=== PATIENT | male | born 1965 | race Caucasian/White ===

== ENCOUNTER → 2016-11-22 | Outpatient (CLI) | payer BC ==
[~2016-11-22] MED LIST: AMOX-355 PO; CETI-176 PO; HYDR1TAB PO; LISI20TA PO; OMEP20TA2 PO; PRD20T PO; SIMV40TA4 PO
--- NOTE | 2016-11-22 11:46 | Diagnostic Imaging Report ---
PROCEDURE: CT sinuses without contrast TECHNIQUE: Multiple contiguous axial images were obtained through the sinuses without the use of intravenous contrast. Coronal and sagittal reformations were then performed. INDICATION: Sinusitis. Polyps. FINDINGS: When compared to 11/04/2011, there is significant improvement in aeration of the maxillary sinuses. There is suggestion of prior sinonasal surgery involving resections of the medial wall of the maxillary sinus more prominent on the left side. Correlate with surgical history. There is remaining mucosal thickening seen in both maxillary sinuses and soft tissue densities obliterating the anterior, superior, and medial aspect of both maxillary sinuses inseparable from the adjacent ostiomeatal complex, upper nasal cavities and the ethmoidal air cells with evidence of erosions of the bony plates these structures and within the ethmoidal air cells. This does not have however an aggressive appearance and is probably a sequela of long-standing sinusitis and sinonasal polyposis. There is prominent mucosal thickening in the sphenoidal sinuses as well. The frontal sinuses are completely obliterated with soft tissue lesions, similar to 2012 exam. The right mastoid air cells and middle ear cavity appear clear. The left mastoid air cells demonstrate minimal inferior medial mucosal thickening, otherwise majority of this area appears clear. IMPRESSION: Significant sinonasal disease with some improvement compared to 11/04/2011 as described. This is probably related to sinonasal polyposis and chronic sinusitis. Dictated by: Dictated on workstation # [id number]
== END ==
LOC: RAD 10:41
PROVIDERS: ATTEND Otolaryngology Otolaryngology/Facial Plastic Surgery
DX: J33.9 Nasal polyp, unspecified (principal); J32.9 Chronic sinusitis, unspecified; R09.81 Nasal congestion
CPT/HCPCS: 70486

== ENCOUNTER 2017-01-13 09:04 | Outpatient (CLI) | payer BC ==
[~2017-01-13] VITALS: Ht 172.7 cm; Wt 92.5 kg
[2017-01-13 09:13] VITALS: BP 144/88
[2017-01-13] MEDS ORDERED: PANT40TA3 PO (09:17)
[2017-01-13] MEDS ORDERED: FENO145T20 PO (09:17)
[2017-01-13 09:41] LABS: BASOPHILS % (AUTO) 0 % (0-10); EOSINOPHILS % (AUTO) 0 % (0-10); LYMPHOCYTES # (AUTO) 0.6 X 10^3 (1.0-4.0); LYMPHOCYTES % (AUTO) 6 % (12-44); MEAN CORPUSCULAR HEMOGLOBIN 31 PG (25-34); MEAN CORPUSCULAR HGB CONC 34 G/DL (32-36); MEAN CORPUSCULAR VOLUME 91 FL (80-99); MEAN PLATELET VOLUME 9.6 FL (7.4-10.4); MONOCYTES # (AUTO) 0.1 X 10^3 (0.0-1.0); MONOCYTES % (AUTO) 1 % (0-12); NEUTROPHILS # (AUTO) 9.1 X 10^3 (1.8-7.8); NEUTROPHILS % (AUTO) 93 % (42-75); PLATELET COUNT 309 10^3/uL (130-400); RED BLOOD COUNT 4.98 10^6/uL (4.35-5.85); RED CELL DISTRIBUTION WIDTH 12.6 % (10.0-14.5); WHITE BLOOD COUNT 9.9 10^3/uL (4.3-11.0)
[2017-01-13 10:10] LABS: ANION GAP 9 MMOL/L (5-14); BAND NEUTROPHILS 0 %; BASOPHILS % (MANUAL) 0 %; BLOOD UREA NITROGEN 22 MG/DL (7-18); BUN/CREATININE RATIO 18 (0-20); CALCIUM 9.6 MG/DL (8.5-10.1); CARBON DIOXIDE 22 MMOL/L (21-32); CHLORIDE 106 MMOL/L (98-107); CREATININE SERUM 1.21 MG/DL (0.60-1.30); EOSINOPHILS % (MANUAL) 0 %; GFR ESTIMATED > 60; GLUCOSE 159 MG/DL (70-105); HEMOLYSIS 12 (0-29); ICTERUS 0.9 (0-1.9); LIPEMIA 9 (0-49); LYMPHOCYTES % (MANUAL) 5 %; NEUTROPHILS % (MANUAL) 94 %; POTASSIUM 5.1 MMOL/L (3.6-5.0); SODIUM 137 MMOL/L (135-145)
--- NOTE | 2017-01-13 10:39 | Diagnostic Imaging Report ---
PA and lateral chest at 9:57 AM. INDICATION: Preop. The heart size is within normal limits and stable when compared to 11/11/2011. The lungs are clear. There is no sign of failure, pneumonia, or pleural effusion. Mediastinum is not widened. The osseous structures are intact. IMPRESSION: There is no evidence for active disease. Dictated by: Dictated on workstation # [id number]
== END 2017-01-13 09:40 | disposition home or self-care (01) ==
LOC: PREOP 09:04
PROVIDERS: ATTEND Otolaryngology Otolaryngology/Facial Plastic Surgery
DX: Z01.818 Encounter for other preprocedural examination (principal); Z01.812 Encounter for preprocedural laboratory examination; Z11.2 Encounter for screening for other bacterial diseases; J32.9 Chronic sinusitis, unspecified
CPT/HCPCS: 36415; 71020; 80048; 85007; 85027; 87081; 93005

== ENCOUNTER 2017-01-20 06:05 | Day surgery (SDC) | payer BC ==
[~2017-01-20] VITALS: Ht 172.7 cm; Wt 92.5 kg
[~2017-01-20 06:05] MED LIST changes: +FENO145T20 PO; +PANT40TA3 PO
[2017-01-20] MEDS ORDERED: HYDROCORTISONE 100 MG/2 ML (Solu-CORTEF) VIAL ONE (06:31)
[2017-01-20] MEDS ORDERED: NS (IVPB) 50 ML ONE (06:32)
[2017-01-20] MEDS ORDERED: AMPICILL/SULB 1.5 GM VIAL (UNASYN) ONE (06:32)
[2017-01-20] MEDS: LACTATED RINGERS 1,000 ML IV PRN ×2 (06:45→08:02)
--- NOTE | 2017-01-20 06:47 | Progress Note-Pre Operative ---
Pre-Operative Progress Note H&P Reviewed The H&P was reviewed, patient examined and no changes noted. Date Seen by Provider: Jan 20, 2017 Time Seen by Provider: 06:35 Date H&P Reviewed: Jan 20, 2017 Time H&P Reviewed: :35 Pre-Operative Diagnosis: Bilat Chronic Sinusitis, Nasal polyps. Bilat HYper of the Inf Turbs DAVIN BAI MD Jan 20, 2017 6:47 am
[2017-01-20 06:51] VITALS: BP 137/75
[2017-01-20] MEDS ORDERED: proPOfol 200 MG/20 ML (DIPRIVAN) VIAL IV ONE (06:53)
[2017-01-20] MEDS ORDERED: fentaNYL INJECTION 100 MCG/2 ML AMP ONE (06:53)
[2017-01-20] MEDS ORDERED: ROCURONIUM 50 MG/5 ML (ZEMURON) VIAL IV ONE (06:53)
[2017-01-20] MEDS ORDERED: ONDANSETRON 4 MG/2 ML (SDV) Z0FRAN ONE (06:53)
[2017-01-20] MEDS ORDERED: DEXAMETHASONE PF 10 MG/ML (DECADRON) VIAL ONE (06:53)
[2017-01-20] MEDS ORDERED: MIDAZOLAM 2 MG/2 ML (VERSED) VIAL ONE (06:54)
[2017-01-20] MEDS ORDERED: PHENYLEPHRINE 0.5% NASAL SPR (NEO-SYNEPHRINE) REG ONE (07:00)
[2017-01-20] MEDS ORDERED: AMPICILLIN/SULBACTAM 1.5 GM/NS 50 ML IVPB IV ONE ×2 (07:00)
[2017-01-20] MEDS ORDERED: BSS 15 ML ONE (07:00)
[2017-01-20] MEDS ORDERED: CATHETER FLUSH 10 ML SYR IV PRN (07:00)
[2017-01-20] MEDS ORDERED: HYDROCORTISONE 100 MG/2 ML (Solu-CORTEF) VIAL IV ONE (07:00)
[2017-01-20] MEDS ORDERED: LIDOCAINE/EPI 1%-1:200,000 (XYLOCAINE) 30 ML VIAL ONE (07:00)
[2017-01-20] MEDS ORDERED: COCAINE HCL 4% 2 ML SYR ONE (07:00)
[2017-01-20] MEDS ORDERED: ALBUTEROL INHALER HFA (VENTOLIN HFA) 8 GM IH ONE (07:41)
[2017-01-20] MEDS ORDERED: SEVOFLURANE (ULTANE) 15 ML INHAL SOLN ONE (08:36)
[2017-01-20] MEDS ORDERED: HYDROcodone/APAP 5 MG/325 MG (LORTAB) TAB PO PRN (08:45)
[2017-01-20] MEDS ORDERED: predniSONE 20 MG TAB PO ONE (08:45)
[2017-01-20] MEDS ORDERED: ACETAMINOPHEN 325 MG TABLET/CAPLET (TYLENOL) PO PRN (08:45)
[2017-01-20] MEDS ORDERED: D5 1/2 NS W/KCL 20 MEQ/L 1,000 ML IV SCH (08:45)
[2017-01-20] MEDS ORDERED: PROMETHAZINE INJ 25 MG/ML (PHENERGAN) AMP IVP PRN (08:45)
--- NOTE | 2017-01-20 08:45 | Progress Note-Post Operative ---
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 Specimen(s) collected/removed Bilat polyps bilat chronic sinusitis, DNP-DAVIN Castañeda MD Jan 20, 2017 8:45 am
[2017-01-20] MEDS ORDERED: LACTATED RINGERS 2,000 ML IV ONE (08:50)
[2017-01-20] MEDS ORDERED: GLYCOPYRROLATE 0.2 MG/ML (ROBINUL) 2 ML VIAL ONE (08:51)
[2017-01-20] MEDS ORDERED: NEOSTIGMINE (BLOXIVERZ ) 1 MG/1ML 10 ML VIAL ONE (08:51)
[2017-01-20] MEDS ORDERED: morphine INJ 10 MG/ML 1ML (SYR OR VIAL) IVP PRN (09:00)
[2017-01-20] MEDS ORDERED: ONDANSETRON 4 MG/2 ML (SDV) Z0FRAN IVP PRN (09:00)
[2017-01-20 09:40] VITALS: BP 145/97
[2017-01-20] MEDS ORDERED: AMOX-355 PO (09:56)
[2017-01-20] MEDS ORDERED: PRD20T PO (09:56)
[2017-01-20] MEDS ORDERED: HYDR-3812 PO (09:56)
[2017-01-20 10:10] VITALS: BP 138/80
[2017-01-20 10:40] VITALS: BP 132/92
== END 2017-01-20 10:45 | disposition home or self-care (01) ==
LOC: SDC 06:05
PROVIDERS: ATTEND Otolaryngology Otolaryngology/Facial Plastic Surgery
DX: J32.0 Chronic maxillary sinusitis (principal); J32.1 Chronic frontal sinusitis; J32.2 Chronic ethmoidal sinusitis; J33.8 Other polyp of sinus; J34.3 Hypertrophy of nasal turbinates; F17.210 Nicotine dependence, cigarettes, uncomplicated

== ENCOUNTER 2018-11-05 10:42 | Observation (INO) | payer BC ==
[~2018-11-05] VITALS: Ht 172.7 cm; Wt 100.6 kg
[2018-11-05] VITALS (13 sets, daily range): BP systolic 106–163; BP diastolic 82–110
[~2018-11-05 10:42] MED LIST changes: +ACET-93 PO; +ACHD5005 PO; +FENO145T2 PO; -FENO145T20 PO; +FENO145T37 PO; +FEXO180T84 PO; +FLUT16SP22 NS; +HYDR-34 PO; +LISI-552 PO
[2018-11-05] MEDS ORDERED: LORazepam 0.5 MG (ATIVAN) TABLET PO STA (11:10)
[2018-11-05] MEDS ORDERED: NITROGLYCERIN 0.4 MG SL TABS BTL 25'S SL PRN ×2 (11:15→15:30)
[2018-11-05] MEDS ORDERED: ASPIRIN 81 MG CHEW (CHILDREN'S ASA) PO ONE (11:15)
--- NOTE | 2018-11-05 11:17 | ED Chest Pain ---
General Chief Complaint: Chest Pain Stated Complaint: LIGHT HEADED; BP 195/117 Nursing Triage Note: ARRIVED VIA AMB TO ROOM 03. STATES WHILE AT WORK [employer] 1030 HE BECAME LIGHT HEADED, CHEST PRESSURE, AND "KIND OF FORGOT" WHERE HE WAS AT. STATES HE STILL IS LIGHT HEADED AND HAS SLIGHT CHESTS PRESSURE. PT ASLO STATES HE IS SHAKEY. Nursing Sepsis Screen: No Definite Risk Source: patient, other (the patient's boss brought to the patient to the emergency department.) Exam Limitations: no limitations History of Present Illness Date Seen by Provider: Nov 05, 2018 Time Seen by Provider: 11:13 Initial Comments This 53-year-old white male presents with a history of chest pressure that occurred while he was at work. The patient stated that he had difficulty thinking about his next task and felt lightheaded. The chest pressure when he arrived in the emergency department was rated as a 5/10. The patient was noted at work to have a markedly elevated blood pressure. The patient has been compliant on his antihypertensive medication. He has had episodes of elevated blood pressure the past but no associated episodes of chest pressure or feeling lightheaded. Patient is under the care of Dr. Kiana Carr. Allergies and Home Medications Allergies Coded Allergies: ibuprofen (Verified Allergy, Unknown, N/V,SWELLING, 06/04/17) naproxen sodium (Verified Allergy, Unknown, N/V, SWELLING, 06/04/17) Home Medications Acetaminophen 500 Mg Tablet, 1,000 MG PO DAILY PRN for PAIN-MILD, (Reported) TAKES 2 (500 MG) TABLETS Fenofibrate Nanocrystallized 145 Mg Tablet, 145 MG PO DAILY, (Reported) Fexofenadine HCl 180 Mg Tablet, 180 MG PO DAILY, (Reported) Fluticasone Propionate 16 Gm [place].susp, 2 SPRAYS NSEACH DAILY, (Reported) Hydrocodone Bit/Acetaminophen 1 Each Tablet, 1-2 EACH PO Q4H Prescribed by: BETO COSTA on 06/05/17 1444 Lisinopril 20 Mg Tablet, 20 MG PO DAILY, (Reported) Pantoprazole Sodium 40 Mg Tablet.dr, 40 MG PO DAILY, (Reported) Patient Home Medication List Home Medication List Reviewed: Yes Review of Systems Review of Systems Constitutional: No chills EENTM: See HPI; No Blurred Vision Respiratory: Denies Cough Cardiovascular: See HPI, Chest Pain Gastrointestinal: Denies Abdominal Pain, Denies Nausea Genitourinary: No Symptoms Reported Musculoskeletal: No back pain Skin: No rash Psychiatric/Neurological: Emotional Problems (patient has been under significant stress at home from his son as well as financial constraints.) Endocrine: No Symptoms Reported Hematologic/Lymphatic: No Symptoms Reported Past Idtbkte-[id number]-Dbhszu Hx Patient Social History Alcohol Use: Denies Use Alcohol Beverage of Choice: Beer Recreational Drug Use: No Smoking Status: Current Everyday Smoker Type Used: Cigarettes Recent Foreign Travel: No Contact w/Someone Who Travel: No Recent Infectious Disease Expo: No Recent Hopitalizations: No Seasonal Allergies Seasonal Allergies: Yes Past Medical History Surgeries: Yes (Bilat SINUS SURGERY, Knee Scope ) Eye Surgery, Orthopedic Respiratory: Yes Sleep Apnea Currently Using CPAP: No (unable to use) Cardiac: Yes High Cholesterol, Hypertension Neurological: No Reproductive Disorders: No Genitourinary: Yes Kidney Stones Gastrointestinal: Yes Gastroesophageal Reflux, Gall Bladder Disease Musculoskeletal: No Endocrine: No HEENT: No Loss of Vision: Denies Hearing Impairment: Denies Cancer: No Did You Recieve Any Treatments: No Psychosocial: No Integumentary: No Blood Disorders: No Family Medical History No Pertinent Family Hx Physical Exam Vital Signs Vital Signs - First Documented 11/05/18 11:07 Temp 98.0 Pulse 123 Resp 18 B/P (MAP) 133/120 (124) Pulse Ox 95 O2 Delivery Room Air Capillary Refill : Less Than 3 Seconds Height, Weight, BMI Height: 5'8.00" Weight: 220lbs. 8.0oz. 99.811144me; 32.7 BMI Method:Stated General Appearance: WD/WN, Anxious HEENT: Normal ENT Inspection Neck: Normal Inspection, Non Tender Respiratory: Lungs Clear Cardiovascular: Regular Rate, Rhythm, No Murmur Gastrointestinal: Normal Bowel Sounds, Soft Extremity: Normal Inspection, Normal Range of Motion Neurologic/Psychiatric: Alert, Oriented x3, No Motor/Sensory Deficits, Normal Mood/Affect Skin: Normal Color, Warm/Dry; No Rash Progress/Results/Core Measures Results/Orders Lab Results Laboratory Tests Test 11/05/18 11:00 Range/Units White Blood Count 11.0 4.3-11.0 10^3/uL Red Blood Count 5.52 4.35-5.85 10^6/uL Hemoglobin 17.0 13.3-17.7 G/DL Hematocrit 50 40-54 % Mean Corpuscular Volume 90 80-99 FL Mean Corpuscular Hemoglobin 31 25-34 PG Mean Corpuscular Hemoglobin Concent 34 32-36 G/DL Red Cell Distribution Width 12.2 10.0-14.5 % Platelet Count 269 130-400 10^3/uL Mean Platelet Volume 9.9 7.4-10.4 FL Neutrophils (%) (Auto) 71 42-75 % Lymphocytes (%) (Auto) 19 12-44 % Monocytes (%) (Auto) 6 0-12 % Eosinophils (%) (Auto) 3 0-10 % Basophils (%) (Auto) 1 0-10 % Neutrophils # (Auto) 7.9 H 1.8-7.8 X 10^3 Lymphocytes # (Auto) 2.1 1.0-4.0 X 10^3 Monocytes # (Auto) 0.7 0.0-1.0 X 10^3 Eosinophils # (Auto) 0.3 0.0-0.3 10^3/uL Basophils # (Auto) 0.1 0.0-0.1 10^3/uL Prothrombin Time 11.9 L 12.2-14.7 SEC INR Comment 0.9 0.8-1.4 Activated Partial Thromboplast Time 24 24-35 SEC Sodium Level 140 135-145 MMOL/L Potassium Level 4.2 3.6-5.0 MMOL/L Chloride Level 102 98-107 MMOL/L Carbon Dioxide Level 11 L 21-32 MMOL/L Anion Gap 27 H 5-14 MMOL/L Blood Urea Nitrogen 13 7-18 MG/DL Creatinine 0.93 0.60-1.30 MG/DL Estimat Glomerular Filtration Rate > 60 BUN/Creatinine Ratio 14 Glucose Level 143 H 70-105 MG/DL Calcium Level 9.2 8.5-10.1 MG/DL Corrected Calcium 8.8 8.5-10.1 MG/DL Magnesium Level 1.6 L 1.8-2.4 MG/DL Total Bilirubin 0.3 0.1-1.0 MG/DL Aspartate Amino Transf (AST/SGOT) 19 5-34 U/L Alanine Aminotransferase (ALT/SGPT) 35 0-55 U/L Alkaline Phosphatase 81 40-136 U/L Myoglobin 26.6 10.0-92.0 NG/ML Troponin T < 6 <=15 NG/L Total Protein 7.3 6.4-8.2 GM/DL Albumin 4.5 3.2-4.5 GM/DL My Orders Orders - MADYSON, NIK James MD Cbc With Automated Diff (11/05/18 11:10) Magnesium (11/05/18 11:10) Chest 1 View Ap/Pa Only (11/05/18 11:10) Ekg Tracing (11/05/18 11:10) Comprehensive Metabolic Panel (11/05/18 11:10) Myoglobin Serum (11/05/18 11:10) Protime With Inr (11/05/18 11:10) Partial Thromboplastin Time (11/05/18 11:10) O2 (11/05/18 11:10) Monitor-Rhythm Ecg Trace Only (11/05/18 11:10) Lipid Panel (11/06/18 06:00) Aspirin Chewable Tablet (Baby Aspirin Ch (11/05/18 11:15) Nitroglycerin 0.4 Mg Btl 25's (Nitrostat (11/05/18 11:15) Saline Lock/Iv-Start (11/05/18 11:10) Troponin T (11/05/18 11:10) Lorazepam Tablet (Ativan Tablet) (11/05/18 11:10) Ct Head Wo (11/05/18 11:12) Metoprolol Succinate (Xl) Tab (Toprol Xl (11/05/18 12:30) Metoprolol Succinate (Xl) Tab (Toprol Xl (11/05/18 12:45) Metoprolol Succinate (Xl) Tab (Toprol Xl (11/05/18 12:37) Medications Given in ED Current Medications Medications Dose Ordered Sig/Scarlet Route Start Time Stop Time Status Last Admin Dose Admin Aspirin 324 mg ONCE ONCE PO 11/05/18 11:15 11/05/18 11:16 DC 11/05/18 11:16 324 MG Nitroglycerin 0.4 mg UD PRN SL 11/05/18 11:15 11/05/18 11:18 0.4 MG Vital Signs/I&O 11/05/18 11:07 Temp 98.0 Pulse 123 Resp 18 B/P (MAP) 133/120 (124) Pulse Ox 95 O2 Delivery Room Air Blood Pressure Mean: 124 Progress Progress Note : Time: 12:25 Progress Note The patient's laboratory and regarding evaluation demonstrated a sinus tachycardia without an acute current of injury, a normal troponin, and a CT of the head which demonstrated no evidence of acute hemorrhage. There was a question of small vessel disease on the patient's CT of the head. The patient's treatment consisted of aspirin, a single nitroglycerin which relieved the patient's 5/10 chest pain and caused a brief episode of hypotension. The patient's anxiety was treated with a milligram of Ativan orally I discussed the findings with patient and his . Although I believe the patient's hypertension and chest pain is at least in part due to stress the fact that the single nitroglycerin relieved his chest discomfort is concerning. was kind enough to consult on the patient and recommended Topral XL 100 mg orally. I have placed a call to Dr. Crum to admit to [place], which he was kind enough to do. Departure Communication (Admissions) Time/Spoke to Admitting Phy: 12:45 Dr. Crum Time/Spoke to Consulting Phy: 12:45 Dr. Larson Impression Primary Impression: Chest pain Qualified Codes: R07.9 - Chest pain, unspecified Disposition: ADMITTED INPATIENT Condition: Improved Admissions Decision to Admit Reason: Admit from ER (General) Decision to Admit/Date: Nov 05, 2018 Time/Decision to Admit Time: 12:46 Departure-Patient Inst. Referrals: KIANA MEAD MD (PCP/Family) Primary Care Physician NIK COUGHLIN MD Nov 05, 2018 11:16
--- NOTE | 2018-11-05 11:26 | NUR ---
BP 116/76 WITH A PRESSURE OF 2 AFTER FIRST NITRO GIVEN. DR NOTIFIED ET 2ND NITRO HELD AT THIS TIME.
[2018-11-05 11:29] LABS: BASOPHILS % (AUTO) 1 % (0-10); EOSINOPHILS % (AUTO) 3 % (0-10); HEMATOCRIT 50 % (40-54); LYMPHOCYTES # (AUTO) 2.1 X 10^3 (1.0-4.0); LYMPHOCYTES % (AUTO) 19 % (12-44); MEAN CORPUSCULAR HEMOGLOBIN 31 PG (25-34); MEAN CORPUSCULAR HGB CONC 34 G/DL (32-36); MEAN CORPUSCULAR VOLUME 90 FL (80-99); MEAN PLATELET VOLUME 9.9 FL (7.4-10.4); MONOCYTES # (AUTO) 0.7 X 10^3 (0.0-1.0); MONOCYTES % (AUTO) 6 % (0-12); NEUTROPHILS # (AUTO) 7.9 X 10^3 (1.8-7.8); NEUTROPHILS % (AUTO) 71 % (42-75); PLATELET COUNT 269 10^3/uL (130-400); RED CELL DISTRIBUTION WIDTH 12.2 % (10.0-14.5)
[2018-11-05 11:30] LABS: BASOPHILS # (AUTO) 0.1 10^3/uL (0.0-0.1); EOSINOPHILS # (AUTO) 0.3 10^3/uL (0.0-0.3)
--- NOTE | 2018-11-05 11:44 | Diagnostic Imaging Report ---
PATIENT HISTORY: Chest pressure, lightheadedness. TECHNIQUE: Single frontal view of the chest. COMPARISON: 01/13/2017. FINDINGS: The lung volumes are normal. No focal consolidation is seen. No large pleural effusion or pneumothorax is seen. The cardiomediastinal silhouette is normal in size and contour. No acute osseous abnormality is seen. IMPRESSION: No acute pulmonary abnormality seen. Dictated by: Dictated on workstation # [id number]
[2018-11-05 11:47] LABS: BILIRUBIN,TOTAL 0.3 MG/DL (0.1-1.0); BUN/CREATININE RATIO 14; CALCIUM 9.2 MG/DL (8.5-10.1); CHLORIDE 102 MMOL/L (98-107); CREATININE SERUM 0.93 MG/DL (0.60-1.30); GFR ESTIMATED > 60; GLUCOSE 143 MG/DL (70-105); MAGNESIUM 1.6 MG/DL (1.8-2.4); POTASSIUM 4.2 MMOL/L (3.6-5.0); SODIUM 140 MMOL/L (135-145)
[2018-11-05 11:48] LABS: ALANINE AMINOTRANSFERASE 35 U/L (0-55); ALBUMIN 4.5 GM/DL (3.2-4.5); ALKALINE PHOSPHATASE 81 U/L (40-136); TOTAL PROTEIN 7.3 GM/DL (6.4-8.2)
[2018-11-05 11:50] LABS: INR 0.9 (0.8-1.4); PROTHROMBIN TIME PATIENT 11.9 SEC (12.2-14.7)
--- NOTE | 2018-11-05 11:50 | NUR ---
RESTING IN BED ET ABS. STATES HE NO LONGER HAS THE PRESSURE. DENIES NEEDS AT THIS TIME.
--- NOTE | 2018-11-05 11:52 | Diagnostic Imaging Report ---
PROCEDURE: CT head without contrast. TECHNIQUE: Multiple contiguous axial images were obtained through the brain without the use of intravenous contrast. Auto Exposure Controls were utilized during the CT exam to meet ALARA standards for radiation dose reduction. DATE: November 05, 2018. COMPARISON: None. INDICATION: 53-year-old male, lightheadedness. Dizziness. FINDINGS: There is nonspecific complete opacification of the visualized portions of the frontal sinuses and sphenoid sinuses. The additional portions of the paranasal sinuses are not imaged. The visualized portions of the paranasal sinuses and middle ears are well aerated. There are areas of low attenuation in the periventricular and subcortical white matter which are nonspecific but may relate to changes of chronic small vessel ischemic disease. There are somewhat asymmetrically prominent areas of low attenuation in the right frontal subcortical white matter on axial images 12 and 11, which potentially could relate to white matter infarcts of uncertain exact age. Changes of chronic small vessel ischemic disease would also be a consideration. Comparison imaging is not available to assess for potential stability. These are not CSF in attenuation. The ventricles and CSF spaces are normal in size and configuration for patient age. There is no abnormal extra-axial fluid collection. There is no evidence of acute cranial hemorrhage. There is no mass effect or midline shift. IMPRESSION: 1. Probable at least moderate changes of chronic small vessel ischemic disease with somewhat asymmetric foci of low attenuation in the right subcortical white matter which potentially could relate to chronic small vessel ischemic changes; however, age-indeterminate infarcts are also considered. MRI brain would be recommended for further assessment. 2. Nonspecific paranasal sinus opacification. Dictated by: Dictated on workstation # [id number]
--- NOTE | 2018-11-05 12:10 | NUR ---
DR COUGHLIN IN ROOM TALKING WITH JUAN ANGUIANO.
--- NOTE | 2018-11-05 12:22 | NUR ---
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
[2018-11-05] MEDS ORDERED: meTOprolol SUCCINATE 100 MG (TOPROL XL) TAB PO ONE ×2 (12:30→19:37)
[2018-11-05] MEDS ORDERED: meTOproloL SUCCINATE 50 MG (TOPROL XL) TAB PO ONE (12:37)
[2018-11-05] MEDS ORDERED: meTOproloL SUCCINATE 50 MG (TOPROL XL) TAB PO SCH (12:45)
--- NOTE | 2018-11-05 12:50 | NUR ---
[facility] SIGNED FOR TRANSFER.
--- NOTE | 2018-11-05 12:51 | NUR ---
ATTEMPT TO CALL REPORT TO RN AT ET NURSE UNAVAILABLE AND WILL CALL BACK FOR REPORT.
--- NOTE | 2018-11-05 12:55 | NUR ---
PT COMPLAINS OF ABD CRAMPING. NOTIFIED.
--- NOTE | 2018-11-05 13:00 | NUR ---
PAPERWORK TOOK TO [employer] FOR ADMIT PROCESS.
--- NOTE | 2018-11-05 13:04 | NUR ---
DR COUGHLIN IN ROOM AT THIS TIME TALKING TO THE PT.
--- NOTE | 2018-11-05 13:24 | NUR ---
WAITING ON PAPERWORK FROM [employer] SO INFO CAN BE FAXED TO [facility].
--- NOTE | 2018-11-05 13:34 | NUR ---
EMS TRANSFER FORM FAXED TO [facility].
--- NOTE | 2018-11-05 13:42 | NUR ---
CALLED [facility] VIA PHONE BECAUSE FAX DID NOT GO THRU.
--- NOTE | 2018-11-05 13:53 | NUR ---
PT COMPLAINS OF NASAL CONGESTION. DR NOTIFIED WHO IS IN TALKING WITH THE PT.
[2018-11-05 13:54] LABS: CARBON DIOXIDE 24 MMOL/L (21-32)
[2018-11-05] MEDS ORDERED: methylPREDNISolone 125 MG (Solu-MEDROL) VIAL IVP ONE (14:00)
--- NOTE | 2018-11-05 14:55 | NUR ---
GREGORY ANGUIANO admitted to room CU4-1, with an admitting diagnosis of CHEST PAIN, on 11/05/18 from ER via stretcher, accompanied by EMS.GREGORY ANGUIANO introduced to surroundings, call light, bed controls, phone, TV, temperature control, lights, meal times, smoking policy, visitor policy, side rail policy, bathrooms and showers. Patient Rights given to patient in the handbook. GREGORY ANGUIANO verbalizes understanding that [facility] is not responsible for the loss or damage to any personal effects or valuables that are kept in the patients posession during their hospitalization. The following Patient Care Plans were discussed with the patient: Discharge Planning, anxiety,knowledge deficit, and pain. GREGORY ANGUIANO verbalizes understanding of Interdisciplinary Patient Education. Patient and/or family were informed about the Rapid Response Team and its purpose.
[2018-11-05] MEDS ORDERED: NS IV 1000 ML 1,000 ML IV SCH (15:30)
[2018-11-05] MEDS ORDERED: CATHETER FLUSH 10 ML SYR IV PRN (15:30)
[2018-11-05] MEDS ORDERED: LORazepam 1 MG (ATIVAN) TAB PO PRN (15:30)
--- NOTE | 2018-11-05 15:42 | Consultation-Cardiology ---
HPI-Cardiology Cardiology Consultation: Date of Consultation 11/05/18 Time Seen by a Provider: 15:05 Date of Admission 11-05-18 Attending Physician Don Crum MD Admitting Physician Kiana Ryan MD Consulting Physician Evens Larson MD HPI: Chief Complaint: Chest Pain Mr. Salgado is a 53 year old male transferred to ICU 4 from [facility] ED. He reports he has been under a lot of stress at home. 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 He reports he was at work this morning when he suddenly began to have chest pressure, mild. He reports a feeling of fluttering in his chest. He states he began to feel diaphoretic, weak and dizzy. He states he felt "disconnected" when a co-worker helped him to sit down. He went to the medical station where he works where they took his v/s and noted his BP to be over 200 systolic and his HR was 130. He reports he was then brought to the ED. He reports the dizziness and chest pressure had resolved by the time he got to the ED and he has had no further episodes since. Review of Systems-Cardiology Review of Systems Constitutional: No chills, No fever; lightheadedness Eyes: No vision change Ears/Nose/Throat: No epistaxis; nasal drainage; No recent hearing loss Respiratory: As described under HPI Cardiovascular: As described under HPI Gastrointestinal: No constipation, No diarrhea, No nausea, No vomiting Genitourinary: No dysuria, No hematuria Musculoskeletal: no symptoms reported Skin: No rash, No ulcerations Psychiatric/Neurological: anxiety; No seizure, No focal weakness, No syncope Hematologic: No bleeding abnormalities RGI-[id number]-Rxnusq Hx Patient Social History Alcohol Use: Denies Use Recreational Drug Use: No Smoking Status: Current Everyday Smoker Type Used: Cigarettes Recent Foreign Travel: No Recent Infectious Disease Expo: No Past Medical History PMH As described under Assessment. Family Medical History Family Medical History: He denies any family h/o CAD or SCD. Allergies and Home Medications Allergies Coded Allergies: ibuprofen (Verified Allergy, Unknown, N/V,SWELLING, 06/04/17) naproxen sodium (Verified Allergy, Unknown, N/V, SWELLING, 06/04/17) Home Medications Acetaminophen 500 Mg Tablet, 1,000 MG PO Q6H PRN for PAIN-MILD, (Reported) TAKES 2 (500 MG) TABLETS Diphenhydramine HCl 25 Mg Capsule, 25 MG PO HS PRN for ALLERGIES, (Reported) Fluticasone Propionate 16 Gm [place].susp, 2 SPRAYS NS DAILY, (Reported) Lisinopril 20 Mg Tablet, 20 MG PO DAILY, (Reported) Pantoprazole Sodium 40 Mg Tablet.dr, 40 MG PO DAILY, (Reported) Physical Exam-Cardiology Physical Exam Vital Signs/I&O 11/05/18 11/06/18 11/06/18 11/06/18 21:00 00:51 01:00 04:23 Temp 97.9 97.4 Pulse 67 65 60 Resp 18 18 B/P (MAP) 117/77 (90) 153/93 (113) Pulse Ox 94 97 O2 Delivery Room Air Room Air Room Air 11/05/18 23:59 Intake Total 740 ml Balance 740 ml Capillary Refill : Less Than 3 Seconds Constitutional: AAO x 3, well-developed, well-nourished HEENT: PERRL; No oral hygience is good Neck: No carotid bruit; carotid pulses are 2 + bilaterally Respiratory: No accessory muscle use, No respiratory distress; chest expansion is symmetric, chest is bilaterally symmetric, rhonchi (scattered), other ( prolonged expiratory phase) Cardiovascular: regular rate-rhythm; No JVD; S1 and S2 Gastrointestinal: soft, round, audible bowel sounds Rectal: deferred Extremities: no lower extremity edema bilateral Neurologic/Psychiatric: grossly intact, power is 5/5 both on sides Skin: No rash, No ulcerations Data Review Labs Laboratory Tests 11/05/18 11:00: White Blood Count 11.0, Red Blood Count 5.52, Hemoglobin 17.0, Hematocrit 50, Mean Corpuscular Volume 90, Mean Corpuscular Hemoglobin 31, Mean Corpuscular Hemoglobin Concent 34, Red Cell Distribution Width 12.2, Platelet Count 269, Mean Platelet Volume 9.9, Neutrophils (%) (Auto) 71, Lymphocytes (%) (Auto) 19, Monocytes (%) (Auto) 6, Eosinophils (%) (Auto) 3, Basophils (%) (Auto) 1, Neutrophils # (Auto) 7.9H, Lymphocytes # (Auto) 2.1, Monocytes # (Auto) 0.7, Eosinophils # (Auto) 0.3, Basophils # (Auto) 0.1, Prothrombin Time 11.9L, INR Comment 0.9, Activated Partial Thromboplast Time 24, Sodium Level 140, Potassium Level 4.2, Chloride Level 102, Carbon Dioxide Level 24, Anion Gap 14, Blood Urea Nitrogen 13, Creatinine 0.93, Estimat Glomerular Filtration Rate > 60 , BUN/Creatinine Ratio 14, Glucose Level 143H, Calcium Level 9.2, Corrected Calcium 8.8, Magnesium Level 1.6L, Total Bilirubin 0.3, Aspartate Amino Transf ( AST/SGOT) 19, Alanine Aminotransferase (ALT/SGPT) 35, Alkaline Phosphatase 81, Myoglobin 26.6, Troponin T < 6, Total Protein 7.3, Albumin 4.5 11/05/18 17:00: Troponin I < 0.028 11/05/18 23:55: Troponin I < 0.028 11/06/18 06:04: White Blood Count 13.7H, Red Blood Count 5.09, Hemoglobin 16.0, Hematocrit 45, Mean Corpuscular Volume 89, Mean Corpuscular Hemoglobin 31, Mean Corpuscular Hemoglobin Concent 35, Red Cell Distribution Width 12.9, Platelet Count 273, Mean Platelet Volume 10.1, Neutrophils (%) (Auto) 84H, Lymphocytes (%) (Auto) 10L, Monocytes (%) (Auto) 6, Eosinophils (%) (Auto) 0, Basophils (%) (Auto) 0, Neutrophils # (Auto) 11.5H, Lymphocytes # (Auto) 1.3, Monocytes # (Auto) 0.9, Eosinophils # (Auto) 0.0, Basophils # (Auto) 0.0, Sodium Level 138, Potassium Level 4.5, Chloride Level 108H, Carbon Dioxide Level 20L, Anion Gap 10, Blood Urea Nitrogen 13, Creatinine 0.86, Estimat Glomerular Filtration Rate > 60, BUN/ Creatinine Ratio 15, Glucose Level 128H, Calcium Level 9.4, Corrected Calcium 9.4, Total Bilirubin 0.4, Aspartate Amino Transf (AST/SGOT) 26, Alanine Aminotransferase (ALT/SGPT) 79H, Alkaline Phosphatase 81, Total Protein 6.6, Albumin 4.0, Troponin I < 0.028, Triglycerides Level 126, Cholesterol Level 272H , LDL Cholesterol Direct 221H, VLDL Cholesterol 25, HDL Cholesterol 42 Radiology NAME: GREGORY SALGADO MED REC#: [id number] PT STATUS: REG ER : 1965 PHYSICIAN: NIK COUGHLIN MD ADMIT DATE: 11/05/18/ER FS Draft Date of Exam:11/05/18 CT HEAD WO PROCEDURE: CT head without contrast. TECHNIQUE: Multiple contiguous axial images were obtained through the brain without the use of intravenous contrast. Auto Exposure Controls were utilized during the CT exam to meet ALARA standards for radiation dose reduction. DATE: November 05, 2018. COMPARISON: None. INDICATION: 53-year-old male, lightheadedness. Dizziness. FINDINGS: There is nonspecific complete opacification of the visualized portions of the frontal sinuses and sphenoid sinuses. The additional portions of the paranasal sinuses are not imaged. The visualized portions of the paranasal sinuses and middle ears are well aerated. There are areas of low attenuation in the periventricular and subcortical white matter which are nonspecific but may relate to changes of chronic small vessel ischemic disease. There are somewhat asymmetrically prominent areas of low attenuation in the right frontal subcortical white matter on axial images 12 and 11, which potentially could relate to white matter infarcts of uncertain exact age. Changes of chronic small vessel ischemic disease would also be a consideration. Comparison imaging is not available to assess for potential stability. These are not CSF in attenuation. The ventricles and CSF spaces are normal in size and configuration for patient age. There is no abnormal extra-axial fluid collection. There is no evidence of acute cranial hemorrhage. There is no mass effect or midline shift. IMPRESSION: 1. Probable at least moderate changes of chronic small vessel ischemic disease with somewhat asymmetric foci of low attenuation in the right subcortical white matter which potentially could relate to chronic small vessel ischemic changes; however, age-indeterminate infarcts are also considered. MRI brain would be recommended for further assessment. 2. Nonspecific paranasal sinus opacification. Dictated on workstation # [id number] Dict: 11/05/18 1140 Trans: 11/05/18 1152 [facility] [id number] Interpreted by: LUCINDA ANGEL MD Electronically signed by: NAME: GREGORY SALGADO [facility] REC#: [id number] PT STATUS: REG ER : 1965 PHYSICIAN: NIK COUGHLIN MD ADMIT DATE: 11/05/18/ER FS Draft Date of Exam:11/05/18 CHEST 1 VIEW AP/PA ONLY PATIENT HISTORY: Chest pressure, lightheadedness. TECHNIQUE: Single frontal view of the chest. COMPARISON: 01/13/2017. FINDINGS: The lung volumes are normal. No focal consolidation is seen. No large pleural effusion or pneumothorax is seen. The cardiomediastinal silhouette is normal in size and contour. No acute osseous abnormality is seen. IMPRESSION: No acute pulmonary abnormality seen. Dictated on workstation # [id number] Dict: 11/05/18 1141 Trans: 11/05/18 1143 [id number] Interpreted by: JUAN MITTAL MD Electronically signed by: ECG Impression ECG Initial ECG Rhythm: Normal Sinus A/P-Cardiology Assessment/Admission Diagnosis Chest pain of undetermined etiology Dizziness of undetermined etiology - resolved after sitting HTN HLD - non-compliant with statin tx Sleep apnea - not compliant with CPAP d/t reported mask intolerance H/O sinus surgeries x 2 Tobaccoism (approx 1 PPD) - cessation advised Discussion and Recomendations Chest discomfort of undetermined etiology - no evidence of ACS D/t his c/o, h/o and risk factors we advise further cardiac work up We advise MPI to evaluate perfusion We advise echocardiogram to eval structure Continue ASA Monitor on tele Replace magnesium Monitor lab closely Advised immediate and complete smoking cessation Further recs will be based on his hospital course We would like to thank medical services for this consult OK to transfer to 4th floor with tele Clinical Quality Measures AMI/AHF: ASA po Prior to arrival: ENOCH Alford Nov 05, 2018 15:42
[2018-11-05] MEDS ORDERED: DIPH25CA79 PO (15:50)
--- NOTE | 2018-11-05 15:51 | NUR ---
SPOKE WITH THE PATIENT ABOUT HIS MEDICATIONS. HE LISTED WHAT HE IS TAKING AND I VERIFIED WITH [facility] WHAT HAS BEEN FILLED RECENTLY. [facility] FILLED: 10-29-18 LISINOPRIL 20MG DAILY #30 (HE STATES HE WAS OUT OF THIS FOR ABOUT THREE WEEKS TRYING TO GET A REFILL AUTHORIZED BUT SINCE HE FILLED IT ON 10-29-18 HE HAS BEEN TAKING IT EVERYDAY. PRIOR TO THE 10-29-18 FILL HE FILLED 30 DAY SUPPLIES ON 09-17-18, 08-09-18, AND 06-05-18) 10-24-18 FLUTICASONE DAILY 10-24-18 PROTONIX 40MG DAILY HE STATES HE TAKES BENADRYL HS PRN AND TYLENOL PRN OTC. HE STATES HE NOT LONGER TAKES THE FENOFIBRATE BECAUSE HE COULDN'T TELL A DIFFERENCE WHEN TAKING IT.
[2018-11-05] MEDS ORDERED: REGADENOSON 0.4 MG/5 ML SYR (LEXISCAN) IV ONE (16:00)
--- NOTE | 2018-11-05 16:57 | Diagnostic Imaging Report ---
PROCEDURE: US carotid duplex, bilateral. TECHNIQUE: Multiple real-time grayscale images were obtained over the carotid arteries in various projections, bilaterally. Additional spectral analysis and color Doppler duplex images were also obtained. INDICATION: Dizziness. FINDINGS: Bilateral peak common internal and external carotid arterial systolic velocities are within normal limits. The ICA/CCA percent ratios are unremarkable bilaterally. Vertebral flow is in the antegrade direction bilaterally. No segmental occlusion. No findings of a hemodynamically significant degree of stenosis. IMPRESSION: No hemodynamically significant stenosis or segmental occlusion identified. Parameters based on the consensus panel De La Fuente-Scale and Doppler ultrasound criteria published May 2003, Radiology, Volume 229. DOPPLER (peak systolic velocity M/S Right Left CCA 0.82 0.83 ICA Proximal 0.92 0.69 ICA Mid 0.81 0.74 ICA Distal 0.76 0.78 RATIO 1.12 0.94 ECA 1.4 0.72 VERT 0.33 0.44 Dictated by: Dictated on workstation # [id number]
--- NOTE | 2018-11-05 19:33 | Consultation-Cardiology ---
HPI-Cardiology Cardiology Consultation: Date of Consultation 11/05/18 Time Seen by a Provider: 19:10 Date of Admission Attending Physician Don Crum MD Admitting Physician Kiana Ryan MD Consulting Physician DOMINIQUE FELIX MD, MA, FACP, FACC, FSCAI, CCDS HPI: Chief Complaint: CC: Chest Pain HPI Mr. Salgado is a 53 year old male transferred to ICU 4 from [facility] ED. He reports he has been under a lot of stress at home. 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 He reports he was at work this morning when he suddenly began to have chest pressure, mild. He reports a feeling of fluttering in his chest. He states he began to feel diaphoretic, weak and dizzy. He states he felt "disconnected" when a co-worker helped him to sit down. He went to the medical station where he works where they took his v/s and noted his BP to be over 200 systolic and his HR was 130. He reports he was then brought to the ED. He reports the dizziness and chest pressure had resolved by the time he got to the ED and he has had no further episodes since. Review of Systems-Cardiology Review of Systems Constitutional: No chills, No fever; lightheadedness Eyes: No vision change Ears/Nose/Throat: No epistaxis; nasal drainage; No recent hearing loss Respiratory: As described under HPI Cardiovascular: As described under HPI Gastrointestinal: No constipation, No diarrhea, No nausea, No vomiting Genitourinary: No dysuria, No hematuria Musculoskeletal: no symptoms reported Skin: No rash, No ulcerations Psychiatric/Neurological: anxiety; No seizure, No focal weakness, No syncope Hematologic: No bleeding abnormalities [id number] Hx Patient Social History Alcohol Use: Denies Use Recreational Drug Use: No Smoking Status: Current Everyday Smoker Type Used: Cigarettes Recent Foreign Travel: No Recent Infectious Disease Expo: No Past Medical History PMH As described under Assessment. Family Medical History Family Medical History: He denies any family h/o CAD or SCD. Family History: Diabetes mellitus 19 FATHER 19 MOTHER Allergies and Home Medications Allergies Coded Allergies: ibuprofen (Verified Allergy, Unknown, N/V,SWELLING, 06/04/17) naproxen sodium (Verified Allergy, Unknown, N/V, SWELLING, 06/04/17) Home Medications Acetaminophen 500 Mg Tablet, 1,000 MG PO Q6H PRN for PAIN-MILD, (Reported) TAKES 2 (500 MG) TABLETS Diphenhydramine HCl 25 Mg Capsule, 25 MG PO HS PRN for ALLERGIES, (Reported) Fluticasone Propionate 16 Gm [place].susp, 2 SPRAYS NS DAILY, (Reported) Lisinopril 20 Mg Tablet, 20 MG PO DAILY, (Reported) Pantoprazole Sodium 40 Mg Tablet.dr, 40 MG PO DAILY, (Reported) Patient Home Medication List Home Medication List Reviewed: Yes Physical Exam-Cardiology Physical Exam Vital Signs/I&O 11/05/18 11/05/18 11/05/18 11/05/18 11:07 12:44 14:03 14:55 Temp 98.0 99.1 Pulse 123 106 Resp 18 16 B/P (MAP) 133/120 (124) 138/82 (100) Pulse Ox 95 94 O2 Delivery Room Air Nasal Cannula Room Air O2 Flow Rate 2.00 11/05/18 11/05/18 11/05/18 11/05/18 14:55 15:00 15:07 15:15 Pulse 79 78 80 Resp 7 19 B/P (MAP) 126/86 (99) 148/92 (110) Pulse Ox 96 96 O2 Delivery Room Air Room Air Room Air 11/05/18 11/05/18 11/05/18 11/05/18 15:30 15:45 16:00 16:15 Pulse 80 81 80 75 Resp 11 22 26 20 B/P (MAP) 106/82 (90) 135/83 (100) 137/92 (107) 128/83 (98) Pulse Ox 96 95 96 95 O2 Delivery Room Air Room Air Room Air Room Air 11/05/18 11/05/18 11/05/18 11/05/18 16:30 16:45 17:00 17:15 Pulse 75 74 74 81 Resp 26 21 8 13 B/P (MAP) 129/98 (108) 141/92 (108) 146/99 (115) 157/110 (126) Pulse Ox 95 95 96 95 O2 Delivery Room Air Room Air Room Air Room Air 11/05/18 11/05/18 18:00 19:22 Temp 97.5 Pulse 79 81 Resp 13 20 B/P (MAP) 146/100 (115) 163/105 (124) Pulse Ox 95 94 O2 Delivery Room Air Room Air Capillary Refill : Less Than 3 Seconds Constitutional: AAO x 3, well-developed, well-nourished HEENT: PERRL; No oral hygience is good Neck: No carotid bruit; carotid pulses are 2 + bilaterally Respiratory: No accessory muscle use, No respiratory distress; chest expansion is symmetric, chest is bilaterally symmetric, rhonchi (scattered), other ( prolonged expiratory phase) Cardiovascular: regular rate-rhythm; No JVD; S1 and S2 Gastrointestinal: soft, round, audible bowel sounds Rectal: deferred Extremities: no lower extremity edema bilateral Neurologic/Psychiatric: grossly intact, power is 5/5 both on sides Skin: No rash, No ulcerations Data Review Labs Laboratory Tests 11/05/18 11:00: White Blood Count 11.0, Red Blood Count 5.52, Hemoglobin 17.0, Hematocrit 50, Mean Corpuscular Volume 90, Mean Corpuscular Hemoglobin 31, Mean Corpuscular Hemoglobin Concent 34, Red Cell Distribution Width 12.2, Platelet Count 269, Mean Platelet Volume 9.9, Neutrophils (%) (Auto) 71, Lymphocytes (%) (Auto) 19, Monocytes (%) (Auto) 6, Eosinophils (%) (Auto) 3, Basophils (%) (Auto) 1, Neutrophils # (Auto) 7.9H, Lymphocytes # (Auto) 2.1, Monocytes # (Auto) 0.7, Eosinophils # (Auto) 0.3, Basophils # (Auto) 0.1, Prothrombin Time 11.9L, INR Comment 0.9, Activated Partial Thromboplast Time 24, Sodium Level 140, Potassium Level 4.2, Chloride Level 102, Carbon Dioxide Level 24, Anion Gap 14, Blood Urea Nitrogen 13, Creatinine 0.93, Estimat Glomerular Filtration Rate > 60 , BUN/Creatinine Ratio 14, Glucose Level 143H, Calcium Level 9.2, Corrected Calcium 8.8, Magnesium Level 1.6L, Total Bilirubin 0.3, Aspartate Amino Transf ( AST/SGOT) 19, Alanine Aminotransferase (ALT/SGPT) 35, Alkaline Phosphatase 81, Myoglobin 26.6, Troponin T < 6, Total Protein 7.3, Albumin 4.5 11/05/18 17:00: Troponin I < 0.028 A/P-Cardiology Assessment/Admission Diagnosis Chest pain of undetermined etiology Dizziness of undetermined etiology - resolved after sitting HTN HLD - non-compliant with statin tx Sleep apnea - not compliant with CPAP d/t reported mask intolerance H/O sinus surgeries x 2 Tobaccoism (approx 1 PPD) - cessation advised Discussion and Recomendations Chest discomfort of undetermined etiology - no evidence of ACS D/t his c/o, h/o and risk factors we advise further cardiac work up We advise MPI to evaluate perfusion We advise echocardiogram to eval structure Continue ASA Monitor on tele Replace magnesium Monitor lab closely Advised immediate and complete smoking cessation Further recs will be based on his hospital course We would like to thank medical services for this consult OK to transfer to 4th floor with tele Clinical Quality Measures AMI/AHF: ASA po Prior to arrival: No DVT/VTE Risk/Contraindication: Risk Factor Score Per Nursin RFS Level Per Nursing on Admit: 3=High DOMINIQUE FELIX MD FACP FACC CCDS Nov 05, 2018 19:33
--- NOTE | 2018-11-05 19:35 | NUR ---
THIS RN CALLED DR. FELIX CONCERNING PT'S B/P: 156/108 WITH HR 80. THIS RN REPORTED THAT PT HAS NOT HAD A DIASTOLIC PRESSURE UNDER 100 SINCE APPROX 4PM AND SYSTOLIC PRESSURE ARE RUNNING 150-170. NEW ORDER RECEIVED FOR 100 MG PO TOPROL XL ONCE/NOW AND TO CHANGE PT'S SANZ DOSE OF TOPROL XL FROM 100 MG TO 200 MG. ORDERS READ BACK AND CONFIRMED.
[2018-11-05] MEDS ORDERED: meTOprolol SUCCINATE 100 MG (TOPROL XL) TAB PO NR (19:45)
--- NOTE | 2018-11-05 20:00 | NUR ---
REPORT GIVEN TO ROBERT ROE. PT TRANSFERRED TO ROOM 433 AT THIS TIME WITH ALL BELONGINGS.
--- NOTE | 2018-11-05 20:11 | NUR ---
PT TRANSFERRED TO ROOM 433 FROM ICU. ARRIVED AT 2010 VIA WALKING. ARRIVED WITH STAFF AND FAMILY
[2018-11-06] VITALS (9 sets, daily range): BP systolic 117–167; BP diastolic 77–100
[2018-11-06 06:20] LABS: BASOPHILS % (AUTO) 0 % (0-10); EOSINOPHILS % (AUTO) 0 % (0-10); HEMATOCRIT 45 % (40-54); LYMPHOCYTES # (AUTO) 1.3 X 10^3 (1.0-4.0); LYMPHOCYTES % (AUTO) 10 % (12-44); MEAN CORPUSCULAR HEMOGLOBIN 31 PG (25-34); MEAN CORPUSCULAR HGB CONC 35 G/DL (32-36); MEAN CORPUSCULAR VOLUME 89 FL (80-99); MEAN PLATELET VOLUME 10.1 FL (7.4-10.4); MONOCYTES # (AUTO) 0.9 X 10^3 (0.0-1.0); MONOCYTES % (AUTO) 6 % (0-12); NEUTROPHILS # (AUTO) 11.5 X 10^3 (1.8-7.8); NEUTROPHILS % (AUTO) 84 % (42-75); PLATELET COUNT 273 10^3/uL (130-400); RED CELL DISTRIBUTION WIDTH 12.9 % (10.0-14.5); WHITE BLOOD COUNT 13.7 10^3/uL (4.3-11.0)
[2018-11-06 06:52] LABS: ALANINE AMINOTRANSFERASE 79 U/L (0-55); ALKALINE PHOSPHATASE 81 U/L (40-136); BILIRUBIN,TOTAL 0.4 MG/DL (0.1-1.0); BUN/CREATININE RATIO 15; CALCIUM 9.4 MG/DL (8.5-10.1); CARBON DIOXIDE 20 MMOL/L (21-32); CHLORIDE 108 MMOL/L (98-107); CHOLESTEROL 272 MG/DL (< 200); CREATININE SERUM 0.86 MG/DL (0.60-1.30); GFR ESTIMATED > 60; GLUCOSE 128 MG/DL (70-105); HDL CHOLESTEROL 42 MG/DL (40-60); POTASSIUM 4.5 MMOL/L (3.6-5.0); SODIUM 138 MMOL/L (135-145); TOTAL PROTEIN 6.6 GM/DL (6.4-8.2); TRIGLYCERIDES 126 MG/DL (<150); VLDL CHOLESTEROL 25 MG/DL (5-40)
[2018-11-06] MEDS ORDERED: meTOprolol SUCCINATE 100 MG (TOPROL XL) TAB PO SCH ×2 (09:00)
[2018-11-06] MEDS ORDERED: ASPIRIN 81 MG CHEW (CHILDREN'S ASA) PO SCH (09:00)
--- NOTE | 2018-11-06 11:00 | Progress Note-Cardiology ---
Cardiology SOAP Progress Note Objective: I&O/Vital Signs 11/07/18 00:00 Intake Total 570 ml Balance 570 ml Weight (Pounds): 221 Weight (Ounces): 11.2 Weight (Calculated Kilograms): [id number] Constitutional: AAO x 3, well-developed, well-nourished Respiratory: No accessory muscle use, No respiratory distress; chest expansion is symmetric, chest is bilaterally symmetric, rhonchi (scattered), other ( prolonged expiratory phase) Cardiovascular: regular rate-rhythm; No JVD; S1 and S2 Gastrointestional: soft, round, audible bowel sounds Extremities: no lower extremity edema bilateral Neurologic/Psychiatric: grossly intact, power is 5/5 both on sides Skin: No rash, No ulcerations Results/Procedures: Labs A/P: Assessment: Chest pain of undetermined etiology Dizziness of undetermined etiology - resolved after sitting - no further reported episodes No hemodynamically significant stenosis or segmental occlusion identified per carotid u/s of 11-05-18 HTN HLD - non-compliant with statin tx- will start statin Sleep apnea - not compliant with CPAP d/t reported mask intolerance H/O sinus surgeries x 2 Tobaccoism (approx 1 PPD) - cessation advised Plan: Chest discomfort of undetermined etiology - no evidence of ACS D/t his c/o, h/o and risk factors we advise further cardiac work up We advise MPI to evaluate perfusion We advise echocardiogram to eval structure Continue ASA Monitor on tele Replace magnesium Monitor lab closely Advised immediate and complete smoking cessation Further recs will be based on his hospital course We would like to thank medical services for this consult OK to transfer to 4th floor with tele Clinical Quality Measures AMI/AHF: ASA po Prior to arrival: ENOCH Alford Nov 06, 2018 11:00
[2018-11-06] MEDS ORDERED: REGADENOSON 0.4 MG/5 ML SYR (LEXISCAN) IV ONE (12:19)
--- NOTE | 2018-11-06 17:43 | Progress Note-Cardiology ---
Cardiology SOAP Progress Note Subjective: No cp or palp or syncope or shortness of breath. Wishes to go home Objective: I&O/Vital Signs 11/06/18 11/06/18 11/06/18 11/06/18 07:07 08:00 09:00 12:00 Temp 97.0 97.4 Pulse 63 64 61 Resp 18 18 B/P (MAP) 167/94 (118) 154/91 (112) Pulse Ox 95 94 O2 Delivery Room Air Room Air Room Air 11/06/18 11/06/18 11/06/18 11/06/18 12:00 12:57 13:00 13:01 Temp 97.4 Pulse 61 67 81 77 Resp 18 18 18 18 B/P (MAP) 154/91 (112) 125/94 (104) 152/100 (117) 134/96 (109) Pulse Ox 94 97 97 97 O2 Delivery Room Air Room Air Room Air Room Air 11/06/18 11/06/18 11/06/18 14:15 16:00 16:00 Temp 97.8 97.8 Pulse 63 67 67 Resp 18 18 B/P (MAP) 133/87 (102) 133/87 (102) Pulse Ox 97 97 O2 Delivery Room Air Room Air 11/06/18 00:00 Intake Total 740 ml Balance 740 ml Weight (Pounds): 221 Weight (Ounces): 11.2 Weight (Calculated Kilograms): 100.047554 Constitutional: AAO x 3, well-developed, well-nourished Respiratory: No accessory muscle use, No respiratory distress; chest expansion is symmetric, chest is bilaterally symmetric, rhonchi (scattered), other ( prolonged expiratory phase) Cardiovascular: regular rate-rhythm; No JVD; S1 and S2 Gastrointestional: soft, round, audible bowel sounds Extremities: no lower extremity edema bilateral Neurologic/Psychiatric: grossly intact, power is 5/5 both on sides Skin: No rash, No ulcerations Results/Procedures: Labs Laboratory Tests 11/05/18 23:55: Troponin I < 0.028 11/06/18 06:04: Troponin I < 0.028, White Blood Count 13.7H, Red Blood Count 5.09, Hemoglobin 16.0, Hematocrit 45, Mean Corpuscular Volume 89, Mean Corpuscular Hemoglobin 31 , Mean Corpuscular Hemoglobin Concent 35, Red Cell Distribution Width 12.9, Platelet Count 273, Mean Platelet Volume 10.1, Neutrophils (%) (Auto) 84H, Lymphocytes (%) (Auto) 10L, Monocytes (%) (Auto) 6, Eosinophils (%) (Auto) 0, Basophils (%) (Auto) 0, Neutrophils # (Auto) 11.5H, Lymphocytes # (Auto) 1.3, Monocytes # (Auto) 0.9, Eosinophils # (Auto) 0.0, Basophils # (Auto) 0.0, Sodium Level 138, Potassium Level 4.5, Chloride Level 108H, Carbon Dioxide Level 20L, Anion Gap 10, Blood Urea Nitrogen 13, Creatinine 0.86, Estimat Glomerular Filtration Rate > 60, BUN/Creatinine Ratio 15, Glucose Level 128H, Calcium Level 9.4, Corrected Calcium 9.4, Total Bilirubin 0.4, Aspartate Amino Transf (AST/SGOT) 26, Alanine Aminotransferase (ALT/SGPT) 79H, Alkaline Phosphatase 81, Total Protein 6.6, Albumin 4.0, Triglycerides Level 126, Cholesterol Level 272H, LDL Cholesterol Direct 221H, VLDL Cholesterol 25, HDL Cholesterol 42 Laboratory Tests 11/05/18 11:00 11/06/18 06:04 A/P: Assessment: Chest pain of undetermined etiology. No evidence of ACS. MPI of 11/06/18 showed no ischemia or infarction; LVEF 55% Dizziness resolved No hemodynamically significant stenosis or segmental occlusion identified per carotid u/s of 11-05-18 HTN HLD - non-compliant with statin tx- statin reinitiated Sleep apnea - not compliant with CPAP d/t reported mask intolerance H/O sinus surgeries x 2 Tobaccoism (approx 1 PPD) - cessation advised Mild leucocytosis w/o clinical evidence of systemic infection. Outpt f/u advised with pcp CAREN Plan: * No clinical evidence of ACS * Risk factor mod reviewed * Advised to quit smoking immediately and completely * Advised f/u with pcp CAREN for management of mild leucocytosis * Compliance advised, including that with treatment of BRIGIDA * Outpt f/u advised Clinical Quality Measures AMI/AHF: ASA po Prior to arrival: DOMINIQUE Brandon MD FACP [facility] Nov 06, 2018 17:43
[2018-11-06] MEDS ORDERED: ATOR40TA PO (17:46)
[2018-11-06] MEDS ORDERED: METO-395 PO (17:46)
--- NOTE | 2018-11-06 17:48 | Discharge Inst-Cardiology ---
Discharge Inst-Cardiac Discharge Medications New Medications: Atorvastatin Calcium (Lipitor) 40 Mg Tablet 40 MG PO HS for 30 Days, #30 TAB 5 Refills Metoprolol Succinate (Metoprolol Succinate) 100 Mg Tab.er.24h 200 MG PO DAILY for 30 Days, #30 TAB 5 Refills Continued Medications: Acetaminophen (Acetaminophen) 500 Mg Tablet 1000 MG PO Q6H PRN for PAIN-MILD, TAB TAKES 2 (500 MG) TABLETS Diphenhydramine HCl (Benadryl) 25 Mg Capsule 25 MG PO HS PRN for ALLERGIES, CAP Fluticasone Propionate (Fluticasone Propionate) 16 Gm [place].susp 2 SPRAYS NS DAILY, EA Pantoprazole Sodium (Pantoprazole Sodium) 40 Mg Tablet.dr 40 MG PO DAILY, TAB Discontinued Medications: Lisinopril (Lisinopril) 20 Mg Tablet 20 MG PO DAILY Patient Instructions Patient Instructions: F/u with Dr Larson in 2-3 weeks No smoking F/u with family doctor to follow up on white count DOMINIQUE ANDERSON MD FACP [facility] Nov 06, 2018 17:48
--- NOTE | 2018-11-06 17:49 | Cardiology Discharge Summary ---
Diagnosis/Chief Complaint Date of Admission Nov 05, 2018 at 13:28 Date of Discharge 11/06/18 Final/Discharge Diagnosis Chest pain of undetermined etiology. No evidence of ACS. MPI of 11/06/18 showed no ischemia or infarction; LVEF 55% Dizziness resolved No hemodynamically significant stenosis or segmental occlusion identified per carotid u/s of 11-05-18 HTN HLD - non-compliant with statin tx- statin reinitiated Sleep apnea - not compliant with CPAP d/t reported mask intolerance H/O sinus surgeries x 2 Tobaccoism (approx 1 PPD) - cessation advised Mild leucocytosis w/o clinical evidence of systemic infection. Outpt f/u advised with pcp CAREN Chief Complaint/HPI Chief Complaint/HPI HPI Mr. Salgado is a 53 year old male transferred to ICU [address] [facility] ED. He reports he has been under a lot of stress at home. 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 He reports he was at work this morning when he suddenly began to have chest pressure, mild. He reports a feeling of fluttering in his chest. He states he began to feel diaphoretic, weak and dizzy. He states he felt "disconnected" when a co-worker helped him to sit down. He went to the medical station where he works where they took his v/s and noted his BP to be over 200 systolic and his HR was 130. He reports he was then brought to the ED. He reports the dizziness and chest pressure had resolved by the time he got to the ED and he has had no further episodes since. Discharge Summary Procedures None. Discussion & Recommendations Home Medications Reviewed patient Home Medication Reconciliation performed by pharmacy medication reconciliations lead maintenance technician and/or nursing. Patients Allergies have been reviewed. Discharge Home Medications: Reviewed and agree with Discharge Medication list on patient's Discharge Instruction sheet Clinical Quality Measures AMI/AHF: ASA po Prior to arrival: No DVT/VTE Risk/Contraindication: Risk Factor Score Per Nursin RFS Level Per Nursing on Admit: 3=High DOMINIQUE FELIX MD FACP [facility] Nov 06, 2018 17:49
--- NOTE | 2018-11-06 18:01 | NUR ---
GREGORY ANGUIANO demonstrates understanding of discharge instructions and accurately returns instructions upon questioning. Copy of Post-Discharge Instructions and Medication Discharge Instructions given to patient and . GREGORY ANGUIANO is able to manage continuing needs after discharge. Patients belongings returned to patient. Skin dry and intact; no breakdown noted. Patient discharged from [facility] on 11/06/18 at 1801 . GREGORY ANGUIANO left floor ambulatory, accompanied by and family.
--- NOTE | 2018-11-06 20:01 | STRESS TEST ---
DATE OF SERVICE: 11/06/2018 RESTING AND POST REGADENOSON TECHNETIUM-99M TETROFOSMIN SPECT CT IMAGING ORDERING PHYSICIAN: Nolvia Raya APRN PRIMARY PHYSICIAN: Dr. Ryan. OTHER PHYSICIAN: Don Crum MD CLINICAL DIAGNOSES: Chest discomfort, lightheadedness, hypertension. Baseline images were carried out after injection of 10.64 mCi of technetium-99m Tetrofosmin. This was followed by 0.4 mg of regadenoson and 30.5 mCi of technetium-99m Tetrofosmin for stress imaging. The electrocardiogram showed sinus rhythm at baseline. Did not change significantly with the regadenoson infusion. The patient noted some shortness of breath following regadenoson infusion, which resolved in a few minutes. Review of images at rest and following stress does not indicate any significant perfusion defects consistent with significant myocardial ischemia or infarction. Gated images show normal global left ventricular systolic function with normal regional wall motion. Left ventricular ejection fraction is calculated to be 55%. CONCLUSIONS: 1. No evidence of significant myocardial ischemia or infarction on this study. 2. Normal regional wall motion. 3. Normal global left ventricular systolic function with a calculated ejection fraction of 55%. Job ID: [id number] DocumentID: [id number] Dictated Date: 11/06/2018 16:33:10 Irs Agent Date: 11/06/2018 20:00:25 Dictated By: DOMINIQUE FELIX MD, MA, FACP, FACC,
[2018-11-06] MEDS ORDERED: ATORVASTATIN 40 MG (LIPITOR) TABLET PO SCH (21:00)
== END 2018-11-06 17:46 | disposition home or self-care (01) ==
LOC: EDUNIT# 10:42 → ER FS 10:45 → ICU 13:28 → UNDOADMIN 13:28 → ICU 14:55 → 4TH 17:00 → ICU 17:00 → UNDODISIN 11-06 18:01
PROVIDERS: ADMIT Internal Medicine; ATTEND Internal Medicine
DX: R07.9 Chest pain, unspecified (principal); R42 Dizziness and giddiness; I10 Essential (primary) hypertension; E78.5 Hyperlipidemia, unspecified; G47.30 Sleep apnea, unspecified; F17.210 Nicotine dependence, cigarettes, uncomplicated; D72.829 Elevated white blood cell count, unspecified; K21.9 Gastro-esophageal reflux disease without esophagitis
CPT/HCPCS: 36415; 70450; 71045; 78452; 80053; 80061; 83735; 83874; 84484; 85025; 85610; 85730; 93005; 93017; 93041; 93306; 93880; 96374

== ENCOUNTER 2020-08-02 12:01 | Emergency (ER) | payer BC ==
[~2020-08-02] VITALS: Ht 172.7 cm; Wt 74.8 kg
[~2020-08-02 12:01] MED LIST changes: +ATOR40TA PO; +DIPH25CA79 PO; +FENO145T26 PO; -FENO145T37 PO; +MTP100TCR PO; -PANT40TA3 PO; +PANT40TA52 PO
--- NOTE | 2020-08-02 12:19 | ED Cardiac General ---
History of Present Illness General Chief Complaint: Cardiac/General Problems Stated Complaint: HIGH BP,SHAKEY,LIGHTHEADED,NUMBNESS IN L ARM Nursing Triage Note: Pt to ED with c/o onset of hypertension today. Pt reports BP of 231/124 at home. Pt reports a weird sensation in L arm that has not resolved. Pt c/o dizziness earlier in the day that has also resolved. Source: patient Exam Limitations: no limitations History of Present Illness Date Seen by Provider: Aug 02, 2020 Time Seen by Provider: 12:20 Initial Comments To ER with reports of high blood pressure that began today about an hour ago at 11 AM. He checked his blood pressure and found it to be 234/124. He normally t akes lisinopril and ran out of that yesterday. He had some transient "weird feeling" in his left arm which has subsequently resolved. He denies any chest pain now or at any time or shortness of breath now or at any time. He does smoke cigarettes. No history of stroke or cardiovascular disease as far as he is aware aside from hypertension. He has had a few friends recently and he became very anxious thinking that he was going to . He felt dizzy at the time but feels better now. He recently lost about 70 pounds in an attempt to get healthier by increasing exercise and following a low-carb diet. Primary care is Kiana Ryan. Timing/Duration: changing over time Severity: moderate Location: shoulder Prior CP/Workup: no prior chest pain NTG SL STEEL POURER HELPER: No ASA po STEEL POURER HELPER: No Allergies and Home Medications Allergies Coded Allergies: ibuprofen (Verified Allergy, Unknown, N/V,SWELLING, 06/04/17) naproxen sodium (Verified Allergy, Unknown, N/V, SWELLING, 06/04/17) aspirin (Unverified Adverse Reaction, Unknown, 08/02/20) makes me plug up and my allergies worse Home Medications Acetaminophen 500 Mg Tablet, 1,000 MG PO Q6H PRN for PAIN-MILD, (Reported) TAKES 2 (500 MG) TABLETS Atorvastatin Calcium 40 Mg Tablet, 40 MG PO HS Prescribed by: DOMINIQUE FELIX on 11/06/18 1367 Diphenhydramine HCl 25 Mg Capsule, 25 MG PO HS PRN for ALLERGIES, (Reported) Fluticasone Propionate 16 Gm [place].susp, 2 SPRAYS NS DAILY, (Reported) Metoprolol Succinate 100 Mg Tab.er.24h, 200 MG PO DAILY Prescribed by: DOMINIQUE FELIX on 11/06/18 1746 Pantoprazole Sodium 40 Mg Tablet.dr, 40 MG PO DAILY, (Reported) Patient Home Medication List Home Medication List Reviewed: Yes NIH Stroke Scale NIH : Select: Initial Level of Consciousness: 0=Alert Level of Consciousness-Questio: 0=Answers both month/age LOC Commands: 0=Performs both tasks Gaze: 0=Normal Visual Johnson: 0=No visual loss Facial Movement (Facial Paresi: 0=Normal symmetrical mnt Motor Function-Arms Right: 0=No drift Motor Function-Arms Left: 0=No drift Motor Function-Legs Right: 0=No drift Motor Function-Legs Left: 0=No drift Limb Ataxia: 0=Absent Sensory: 0=Normal:no loss Best Language: 0=No aphasia Dysarthria: 0=Normal Extinction & Inattention: 0=No abnormality NIH Stroke Scale Score: 0 Review of Systems Review of Systems Constitutional: see HPI EENTM: No Symptoms Reported Respiratory: No Symptoms Reported Cardiovascular: No Symptoms Reported Gastrointestinal: See HPI Genitourinary: No Symptoms Reported Musculoskeletal: no symptoms reported Skin: no symptoms reported Psychiatric/Neurological: No Symptoms Reported, See HPI Endocrine: No Symptoms Reported Hematologic/Lymphatic: No Symptoms Reported Past Dvqppxv-Bupazm-Aiqpud Hx Patient Social History Alcohol Use: Denies Use Number of Drinks Today: AA Alcohol Beverage of Choice: Beer Recreational Drug Use: No Smoking Status: Current Everyday Smoker Type Used: Cigarettes 2nd Hand Smoke Exposure: Yes Recent Foreign Travel: No Contact w/Someone Who Travel: No Recent Infectious Disease Expo: No Recent Hopitalizations: No Seasonal Allergies Seasonal Allergies: Yes Past Medical History Surgeries: Yes (Bilat SINUS SURGERY, Knee Scope ) Eye Surgery, Orthopedic Respiratory: Yes Sleep Apnea Currently Using CPAP: No (unable to use) Cardiac: Yes High Cholesterol, Hypertension Neurological: No Reproductive Disorders: No Genitourinary: Yes Kidney Stones Gastrointestinal: Yes Gastroesophageal Reflux, Gall Bladder Disease Musculoskeletal: No Endocrine: No HEENT: No Loss of Vision: Denies Hearing Impairment: Denies Cancer: No Did You Recieve Any Treatments: No Psychosocial: No Integumentary: No Blood Disorders: No Family Medical History Diabetes mellitus 19 FATHER 19 MOTHER No Pertinent Family Hx Physical Exam Vital Signs Vital Signs - First Documented 08/02/20 12:05 Temp 36.6 Pulse 97 Resp 17 B/P (MAP) 205/124 (151) Pulse Ox 99 O2 Delivery Room Air Capillary Refill : Less Than 3 Seconds Height, Weight, BMI Height: 5'8.00" Weight: 221lbs. 11.2oz. 100.564396oq; 25.00 BMI Method:Stated General Appearance: No Apparent Distress, WD/WN, Anxious, Other (BP 205/110 HR 80s sinus. ) Neck: Full Range of Motion, Normal Inspection Respiratory: No Accessory Muscle Use, No Respiratory Distress Cardiovascular: Regular Rate, Rhythm, Normal Peripheral Pulses Gastrointestinal: Normal Bowel Sounds, Non Tender, Soft Extremity: Normal Capillary Refill, Normal Inspection Neurologic/Psychiatric: Alert, Oriented x3 Skin: Normal Color, Warm/Dry Progress/Results/Core Measures Results/Orders Lab Results Laboratory Tests Test 08/02/20 12:05 08/02/20 12:30 Range/Units White Blood Count 9.2 4.3-11.0 10^3/uL Red Blood Count 5.45 4.30-5.52 10^6/uL Hemoglobin 16.6 13.3-17.7 g/dL Hematocrit 50 40-54 % Mean Corpuscular Volume 91 80-99 fL Mean Corpuscular Hemoglobin 31 25-34 pg Mean Corpuscular Hemoglobin Concent 34 32-36 g/dL Red Cell Distribution Width 12.8 10.0-14.5 % Platelet Count 283 130-400 10^3/uL Mean Platelet Volume 9.5 9.0-12.2 fL Immature Granulocyte % (Auto) 0 % Neutrophils (%) (Auto) 60 42-75 % Lymphocytes (%) (Auto) 29 12-44 % Monocytes (%) (Auto) 7 0-12 % Eosinophils (%) (Auto) 4 0-10 % Basophils (%) (Auto) 1 0-10 % Neutrophils # (Auto) 5.5 1.8-7.8 10^3/uL Lymphocytes # (Auto) 2.7 1.0-4.0 10^3/uL Monocytes # (Auto) 0.6 0.0-1.0 10^3/uL Eosinophils # (Auto) 0.4 H 0.0-0.3 10^3/uL Basophils # (Auto) 0.1 0.0-0.1 10^3/uL Immature Granulocyte # (Auto) 0.0 0.0-0.1 10^3/uL Prothrombin Time 12.0 L 12.2-14.7 SEC INR Comment 0.9 0.8-1.4 Activated Partial Thromboplast Time 24 24-35 SEC D-Dimer < 0.27 0.00-0.49 UG/ML Sodium Level 138 135-145 MMOL/L Potassium Level 4.4 3.6-5.0 MMOL/L Chloride Level 103 98-107 MMOL/L Carbon Dioxide Level 25 21-32 MMOL/L Anion Gap 10 5-14 MMOL/L Blood Urea Nitrogen 12 7-18 MG/DL Creatinine 0.96 0.60-1.30 MG/DL Estimat Glomerular Filtration Rate > 60 BUN/Creatinine Ratio 13 Glucose Level 129 H 70-105 MG/DL Calcium Level 9.4 8.5-10.1 MG/DL Corrected Calcium 8.5-10.1 MG/DL Total Bilirubin 0.6 0.1-1.0 MG/DL Aspartate Amino Transf (AST/SGOT) 11 5-34 U/L Alanine Aminotransferase (ALT/SGPT) 16 0-55 U/L Alkaline Phosphatase 68 40-136 U/L Troponin I < 0.028 <0.028 NG/ML Total Protein 7.5 6.4-8.2 GM/DL Albumin 4.6 H 3.2-4.5 GM/DL Glucometer 117 H 70-110 MG/DL My Orders Orders - KOURTNEY URIARTE APRN Cbc With Automated Diff (08/02/20 12:18) Protime With Inr (08/02/20 12:18) Partial Thromboplastin Time (08/02/20 12:18) Comprehensive Metabolic Panel (08/02/20 12:18) Fibrin Degradation Products (08/02/20 12:18) Troponin I (08/02/20 12:18) Ua Culture If Indicated (08/02/20 12:18) Chest 1 View, Ap/Pa Only (08/02/20 12:18) Ekg Tracing (08/02/20 12:18) Nothing By Mouth (08/02/20 Lunch) Accucheck Stat ONCE (08/02/20 12:18) Ed Iv/Invasive Line Start (08/02/20 12:18) Ed Iv/Invasive Line Start (08/02/20 12:18) Vital Signs Stroke Patient Q15M (08/02/20 12:18) Ct Head Wo-R/O Stroke (08/02/20 12:18) O2 (08/02/20 12:18) Intake & Output 06,14,22 (08/02/20 12:18) Monitor-Rhythm Ecg Trace Only (08/02/20 12:18) Dysphagia Screening Tool (08/02/20 12:18) Post Thrombolytic Adminstratio (08/02/20 12:18) Lipid Panel (08/03/20 06:00) Ct Angio Head/Neck (08/02/20 12:18) Clonidine Tablet (Catapres Tablet) (08/02/20 12:30) Iohexol Injection (Omnipaque 350 Mg/Ml 1 (08/02/20 12:30) Received Contrast (Hold Metformin- Contr (08/02/20 12:30) Ns (Ivpb) (Sodium Chloride 0.9% Ivpb Bag (08/02/20 12:30) Lorazepam Injection (Ativan Injection) (08/02/20 12:30) Medications Given in ED Current Medications Medications Dose Ordered Sig/Scarlet Route Start Time Stop Time Status Last Admin Dose Admin Clonidine HCl 0.1 mg ONCE ONCE PO 08/02/20 12:30 08/02/20 12:31 DC 08/02/20 12:23 0.1 MG Iohexol 100 ml ONCE ONCE IV 08/02/20 12:30 08/02/20 12:31 DC 08/02/20 12:58 87 ML Sodium Chloride 100 ml ONCE ONCE IV 08/02/20 12:30 08/02/20 12:31 DC 08/02/20 12:58 80 ML Vital Signs/I&O 08/02/20 12:05 Temp 36.6 Pulse 97 Resp 17 B/P (MAP) 205/124 (151) Pulse Ox 99 O2 Delivery Room Air Blood Pressure Mean: 151 Diagnostic Imaging Diagonstic Imaging: CT Comments NAME: GREGORY ANGUIANO Netta [facility] REC#: [id number] PT STATUS: REG ER : 1965 PHYSICIAN: KOURTNEY URIARTE APRN ADMIT DATE: 08/02/20/ER Signed Date of Exam:08/02/20 CT HEAD WO-R/O STROKE PROCEDURE: CT head wo r/o stroke. TECHNIQUE: Multiple contiguous axial images were obtained through the brain without the use of intravenous contrast. Auto Exposure Controls were utilized during the CT exam to meet ALARA standards for radiation dose reduction. INDICATION: Hypertension, altered sensation in the left arm. Compared with study 11/05/2018. FINDINGS: There is no intracranial hemorrhage. No suspicious asymmetric intra-arterial luminal hyperdensities were found. No mass or mass effect. No focal or generalized cerebral edema. No evidence for an elevation of the intracranial pressures. This patient has severe paranasal sinus disease with complete opacification of the sphenoid ethmoid air cells and frontal sinuses with postoperative changes of resection of the medial maxillary guillory with extensive lobular membrane thickening in the right greater the left maxillary sinus present as well as a shallow left maxillary sinus air-fluid level. There is no mastoid effusion. IMPRESSION: 1. The brain appeared stable and unremarkable. 2. Severe paranasal sinus disease. Dictated by: Dictated on workstation # [id number] Dict: 08/02/20 1258 Trans: 08/02/20 1310 CV [id number] Interpreted by: RICHIE HENDRICKSON Electronically signed by: RICHIE HENDRICKSON 08/02/20 1310 NAME: GREGORY ANGUIANO [facility] REC#: [id number] PT STATUS: REG ER : 1965 PHYSICIAN: KOURTNEY URIARTE APRN ADMIT DATE: 08/02/20/ER Draft Date of Exam:08/02/20 CT ANGIO HEAD/NECK PROCEDURE: CT angiography of the head and CT angiography of the neck with and without contrast. TECHNIQUE: Contiguous noncontrast images were obtained from the skull base through the vertex. After intravenous contrast administration, helical CT angiography of the neck was performed. Source data was reformatted into 3D MIP projections. Delayed post contrast acquisition was also obtained. Auto Exposure Controls were utilized during the CT exam to meet ALARA standards for radiation dose reduction. INDICATION: Neuro deficits COMPARISON: CT from the same date as well as from 11/05/2018. FINDINGS: No midline shift, herniation, hydrocephalus, or extra-axial fluid collection. Scattered rounded hypodensities are noted within subcortical white matter. These appear similar to prior imaging from 2019. No enhancing intracranial mass lesion. No definite CT evidence of a large geographic acute ischemic infarction. The orbits are unremarkable. Extensive opacification of the paranasal sinuses, appearing similar to the prior examinations. The mastoid air cells are clear. The calvarium is intact. Scattered vascular calcifications. Parapharyngeal fat is symmetric and well-maintained. Muscles of mastication are unremarkable. 9 mm mass lesion is noted within the right parotid gland, though this appears not significantly changed since prior CT from 11/04/2011. The salivary glands are otherwise unremarkable. Lymph nodes within the bilateral cervical chains. Mandibular angles are at the upper limits of normal in size measuring just under 1 cm in short dimension. The thyroid gland is unremarkable. No focal fluid collection. The airway is patent. No apical pneumothorax. 1.7 cm subcutaneous cystic lesion overlying the superior and posterior aspect of the torso just to the right of midline. Scattered osseous degenerative changes without acute osseous abnormality. A three-vessel aortic arch is present. Moderate calcifications involving the right carotid bulb. There is however less than 50% stenosis based on massive criteria. Mild calcifications within the left carotid bulb without significant hemodynamic significant stenosis. origin of the left posterior cerebral artery. Dominant left vertebral artery with the right vertebral artery predominantly terminating in PICA. No additional evidence of occlusion, hemodynamically significant stenosis, dissection, aneurysm, or pseudoaneurysm involving the large arterial structures of the head and neck. The large dural venous sinuses appear patent. IMPRESSION: Stable patchy focal hypodensities predominantly at the subcortical white matter. These appear similar to the prior examination. Findings may and likely relate to chronic small vessel ischemic disease, though demyelinating process would be an additional consideration. Should symptoms persist, followup MRI with and without contrast would be recommended. Mild scattered vascular calcifications without evidence of occlusion, hemodynamically significant stenosis, dissection, or aneurysm. 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 Probable sebaceous cyst involving the superior aspect of the torso posteriorly just to the right of midline. Extensive paranasal sinus disease. Dictated on workstation # [id number] Dict: 08/02/20 1310 Trans: 08/02/20 1351 CVB [id number] Interpreted by: LEON CAVAZOS MD Electronically signed by: Departure Communication (Admissions) 1323-still feeling okay albeit a little bit sleepy. Blood pressure has come down, no neurologic deficits. 1401-Bp 124/70s, asymptomatic. Will dc to home. Impression Primary Impression: High blood pressure Additional Impression: Sinusitis Disposition: HOME, SELF-CARE Condition: Stable Departure-Patient Inst. Decision time for Depature: 13:24 Referrals: KIANA RYAN MD (PCP/Family) Primary Care Physician Patient Instructions: Malignant Hypertension (DC), Sinusitis, Adult (DC) Add. Discharge Instructions: 1. Take the medication as directed including steroids and antibiotics. Restart your lisinopril today. Take the clonidine blood pressure medication if you find that your blood pressure goes up over 170 on the top number. You can take this medication clonidine up to twice a day. All discharge instructions reviewed with patient and/or family. Voiced understanding. Scripts Clonidine HCl (Clonidine HCl) 0.1 Mg Tablet 0.1 MG PO BID PRN for high blood pressure, #10 TAB Take up to twice a day IF top number of blood pressure is over 170. Prov: KOURTNEY URIARTE APRN 08/02/20 Levofloxacin (Levofloxacin) 500 Mg Tablet 500 MG PO DAILY, #7 TAB Prov: KOURTNEY URIARTE APRN 08/02/20 Prednisone (Prednisone) 20 Mg Tab 40 MG PO DAILY, #8 TAB 0 Refills Prov: KOURTNEY URIARTE APRN 08/02/20 Lisinopril (Lisinopril) 20 Mg Tablet 20 MG PO DAILY, #30 TAB Prov: KOURTNEY URIARTE APRN 08/02/20 Copy Copies To 1: KIANA RYAN MD, PETER J APRN Aug 02, 2020 12:19
[2020-08-02 12:23] LABS: BASOPHILS # (AUTO) 0.1 10^3/uL (0.0-0.1); BASOPHILS % (AUTO) 1 % (0-10); EOSINOPHILS # (AUTO) 0.4 10^3/uL (0.0-0.3); EOSINOPHILS % (AUTO) 4 % (0-10); HEMATOCRIT 50 % (40-54); HEMOGLOBIN 16.6 g/dL (13.3-17.7); LYMPHOCYTES # (AUTO) 2.7 10^3/uL (1.0-4.0); LYMPHOCYTES % (AUTO) 29 % (12-44); MEAN CORPUSCULAR HEMOGLOBIN 31 pg (25-34); MEAN CORPUSCULAR HGB CONC 34 g/dL (32-36); MEAN CORPUSCULAR VOLUME 91 fL (80-99); MEAN PLATELET VOLUME 9.5 fL (9.0-12.2); MONOCYTES # (AUTO) 0.6 10^3/uL (0.0-1.0); MONOCYTES % (AUTO) 7 % (0-12); NEUTROPHILS # (AUTO) 5.5 10^3/uL (1.8-7.8); NEUTROPHILS % (AUTO) 60 % (42-75); PLATELET COUNT 283 10^3/uL (130-400); WHITE BLOOD COUNT 9.2 10^3/uL (4.3-11.0)
[2020-08-02 12:29] LABS: ALBUMIN 4.6 GM/DL (3.2-4.5); CHLORIDE 103 MMOL/L (98-107); POTASSIUM 4.4 MMOL/L (3.6-5.0); SODIUM 138 MMOL/L (135-145)
[2020-08-02 12:30] LABS: CALCIUM 9.4 MG/DL (8.5-10.1)
[2020-08-02] MEDS ORDERED: IOHEXOL 350 MG/ML 100 ML (OMNIPAQUE 350) VIAL IV ONE (12:30)
[2020-08-02] MEDS ORDERED: NS 100 ML (IVPB) BAG IV ONE (12:30)
[2020-08-02] MEDS ORDERED: cloNIDine 0.1 MG (CATAPRES) TAB PO ONE (12:30)
[2020-08-02] MEDS ORDERED: HOLD METFORMIN - RECEIVED CONTRAST 20 ML VIAL IV SCH (12:30)
[2020-08-02] MEDS ORDERED: LORazepam INJ 2 MG/ML (ATIVAN) VIAL IVP PRN (12:30)
[2020-08-02 12:31] LABS: GLUCOSE 129 MG/DL (70-105)
--- NOTE | 2020-08-02 12:31 | NUR ---
Pt reported feeling very anxious regarding CT scan. Pt stating he is not sure if he can handle CT. Mac Zuñiga notified. Mac prescribed ativan. Pt refused ativan.
[2020-08-02 12:32] LABS: TOTAL PROTEIN 7.5 GM/DL (6.4-8.2)
[2020-08-02 12:33] LABS: BILIRUBIN,TOTAL 0.6 MG/DL (0.1-1.0); CARBON DIOXIDE 25 MMOL/L (21-32)
[2020-08-02 12:35] LABS: ALKALINE PHOSPHATASE 68 U/L (40-136); CREATININE SERUM 0.96 MG/DL (0.60-1.30); GFR ESTIMATED > 60
[2020-08-02 12:36] LABS: BUN/CREATININE RATIO 13
[2020-08-02 12:38] LABS: ALANINE AMINOTRANSFERASE 16 U/L (0-55); FIBRIN DEGRADATION PRODUCTS < 0.27 UG/ML (0.00-0.49); INR 0.9 (0.8-1.4); PARTIAL THROMBOPLASTIN TIME 24 SEC (24-35)
--- NOTE | 2020-08-02 13:08 | Diagnostic Imaging Report ---
PROCEDURE: CT head wo r/o stroke. TECHNIQUE: Multiple contiguous axial images were obtained through the brain without the use of intravenous contrast. Auto Exposure Controls were utilized during the CT exam to meet ALARA standards for radiation dose reduction. INDICATION: Hypertension, altered sensation in the left arm. Compared with study 11/05/2018. FINDINGS: There is no intracranial hemorrhage. No suspicious asymmetric intra-arterial luminal hyperdensities were found. No mass or mass effect. No focal or generalized cerebral edema. No evidence for an elevation of the intracranial pressures. This patient has severe paranasal sinus disease with complete opacification of the sphenoid ethmoid air cells and frontal sinuses with postoperative changes of resection of the medial maxillary guillory with extensive lobular membrane thickening in the right greater the left maxillary sinus present as well as a shallow left maxillary sinus air-fluid level. There is no mastoid effusion. IMPRESSION: 1. The brain appeared stable and unremarkable. 2. Severe paranasal sinus disease. Dictated by: Dictated on workstation # [id number]
--- NOTE | 2020-08-02 13:12 | Diagnostic Imaging Report ---
INDICATION: Hypertension COMPARISON: 11/05/2018 TECHNIQUE: Single radiograph of the chest dated . FINDINGS: The cardiac silhouette is within normal limits in size. No significant pulmonary vascular congestion. The lungs are clear. No pleural effusion. No pneumothorax. No acute osseous abnormality. IMPRESSION: Stable examination without acute cardiopulmonary abnormality. Dictated by: Dictated on workstation # [id number]
--- NOTE | 2020-08-02 13:51 | Diagnostic Imaging Report ---
PROCEDURE: CT angiography of the head and CT angiography of the neck with and without contrast. TECHNIQUE: Contiguous noncontrast images were obtained from the skull base through the vertex. After intravenous contrast administration, helical CT angiography of the neck was performed. Source data was reformatted into 3D MIP projections. Delayed post contrast acquisition was also obtained. Auto Exposure Controls were utilized during the CT exam to meet ALARA standards for radiation dose reduction. INDICATION: Neuro deficits COMPARISON: CT from the same date as well as from 11/05/2018. FINDINGS: No midline shift, herniation, hydrocephalus, or extra-axial fluid collection. Scattered rounded hypodensities are noted within subcortical white matter. These appear similar to prior imaging from 2019. No enhancing intracranial mass lesion. No definite CT evidence of a large geographic acute ischemic infarction. The orbits are unremarkable. Extensive opacification of the paranasal sinuses, appearing similar to the prior examinations. The mastoid air cells are clear. The calvarium is intact. Scattered vascular calcifications. Parapharyngeal fat is symmetric and well-maintained. Muscles of mastication are unremarkable. 9 mm mass lesion is noted within the right parotid gland, though this appears not significantly changed since prior CT from 11/04/2011. The salivary glands are otherwise unremarkable. Lymph nodes within the bilateral cervical chains. Mandibular angles are at the upper limits of normal in size measuring just under 1 cm in short dimension. The thyroid gland is unremarkable. No focal fluid collection. The airway is patent. No apical pneumothorax. 1.7 cm subcutaneous cystic lesion overlying the superior and posterior aspect of the torso just to the right of midline. Scattered osseous degenerative changes without acute osseous abnormality. A three-vessel aortic arch is present. Moderate calcifications involving the right carotid bulb. There is however less than 50% stenosis based on massive criteria. Mild calcifications within the left carotid bulb without significant hemodynamic significant stenosis. origin of the left posterior cerebral artery. Dominant left vertebral artery with the right vertebral artery predominantly terminating in PICA. No additional evidence of occlusion, hemodynamically significant stenosis, dissection, aneurysm, or pseudoaneurysm involving the large arterial structures of the head and neck. The large dural venous sinuses appear patent. IMPRESSION: Stable patchy focal hypodensities predominantly at the subcortical white matter. These appear similar to the prior examination. Findings may and likely relate to chronic small vessel ischemic disease, though demyelinating process would be an additional consideration. Should symptoms persist, followup MRI with and without contrast would be recommended. Mild scattered vascular calcifications without evidence of occlusion, hemodynamically significant stenosis, dissection, or aneurysm. 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 Probable sebaceous cyst involving the superior aspect of the torso posteriorly just to the right of midline. Extensive paranasal sinus disease. Dictated by: Dictated on workstation # [id number]
[2020-08-02] MEDS ORDERED: LEVO500T80 PO (14:07)
[2020-08-02] MEDS ORDERED: CLN.1T PO (14:07)
[2020-08-02] MEDS ORDERED: PRD20T PO (14:07)
[2020-08-02] MEDS ORDERED: LISI-552 PO (14:07)
[2020-08-02 14:15] VITALS: BP 110/78
== END 2020-08-02 14:15 | disposition home or self-care (01) ==
LOC: EDUNIT# 12:01 → ER 12:03
DX: I10 Essential (primary) hypertension (principal); J32.9 Chronic sinusitis, unspecified; K21.9 Gastro-esophageal reflux disease without esophagitis; E78.00 Pure hypercholesterolemia, unspecified; F41.9 Anxiety disorder, unspecified; F17.210 Nicotine dependence, cigarettes, uncomplicated; Z88.6 Allergy status to analgesic agent; Z88.8 Allergy status to other drugs, medicaments and biological substances; Z83.3 Family history of diabetes mellitus
CPT/HCPCS: 36415; 70450; 70496; 70498; 71045; 80053; 82962; 84484; 85025; 85379; 85610; 85730; 93005; 93041